=== PATIENT | male | born 1980 | race Caucasian/White ===

== ENCOUNTER 2017-03-02 17:56 | Emergency (ER) | payer SELFPAY ==
[~2017-03-02] VITALS: Wt 97.0 kg
[2017-03-02] MEDS ORDERED: ALBUTEROL 0.083% (NEB) 2.5 MG/3 ML AMP HHN STA (18:07)
[2017-03-02] MEDS ORDERED: IPRATROPIUM (NEB) 0.5 MG/2.5 ML AMP HHN ONE (18:30)
[2017-03-02] MEDS ORDERED: METHYLPREDNISOLONE 125 MG INJ IV ONE (18:30)
[2017-03-02] MEDS ORDERED: ALBU8.5H3 INH (19:28)
[2017-03-02] MEDS ORDERED: PRED20TA PO (19:28)
[2017-03-02] MEDS ORDERED: ALBU2.5V3 NEB (19:28)
--- NOTE | 2017-03-02 19:31 | ERD ---
ER Documentation Chief Complaint Chief Complaint COUGH, SOB, HX OF ASTHMA HPI This 36-year-old male complains of shortness of breath and wheezing for the last 2 days. Patient has a history of asthma. Patient has a history of hospitalizations. He was hospitalized 3 weeks ago around [facility]. Denies any recent URIs. He is uncertain of any allergies but he is new to [facility]. He has a nebulizer at home and is out of medication for this nebulizer and is out of his inhaler. ROS All systems reviewed and are negative except as per history of present illness. Medications Home Meds Active Scripts Albuterol Sulfate* (Albuterol Sulfate* Neb) 0.083%-3 Ml Neb, 2.5 MG NEB Q4 Y for SHORTNESS OF BREATH, #30 EA Prov:RUPERTO JARAMILLO MD 03/02/17 Albuterol Sulfate* (Proair HFA*) 8.5 Gm Hfa.aer.ad, 2 PUFF INH Q4, #1 INHALER Prov:RUPERTO JARAMILLO MD 03/02/17 Prednisone* (Prednisone*) 20 Mg Tab, 60 MG PO DAILY for 6 Days, TAB 60 mg by mouth for day for 3 days. Then 40 mg by mouth for 3 days Prov:RUPERTO JARAMILLO MD 03/02/17 PMhx/Soc History of Surgery: No Anesthesia Reaction: No Hx Neurological Disorder: No Hx Respiratory Disorders: No Hx Cardiac Disorders: No Hx Psychiatric Problems: No Hx Miscellaneous Medical Probl: No Hx Alcohol Use: No Hx Substance Use: No Hx Tobacco Use: No Smoking Status: Never smoker Physical Exam Vitals Vital Signs Date Time Temp Pulse Resp B/P Pulse Ox O2 Delivery O2 Flow Rate FiO2 03/02/17 18:23 Nasal Cannula 03/02/17 18:15 120 20 94 21 03/02/17 17:57 98.6 120 20 166/108 94 Physical Exam Const: [] Alert, distressed but visibly short of breath and wheezing. Head: Atraumatic Eyes: Normal Conjunctiva ENT: Normal External Ears, Nose and Mouth. Neck: Full range of motion..~ No meningismus. Resp: Fuhs wheezing without rales or retractions. Cardio: Regular rate and rhythm, no murmurs Abd: Soft, non tender, non distended. Normal bowel sounds Skin: No petechiae or rashes Back: No midline or flank tenderness Ext: No cyanosis, or edema Neur: Awake and alert Psych: Normal Mood and Affect Results 24 hrs Current Medications Medications (Trade) Dose Ordered Sig/Kristopher Route PRN Reason Start Time Stop Time Status Last Admin Dose Admin Albuterol (Proventil 0.083% (Neb)) 10 mg ONCE STAT HHN 03/02/17 18:07 03/02/17 18:09 DC 03/02/17 18:14 Ipratropium [place] (Atrovent 0.02% (Neb)) 1 mg ONCE ONCE HHN 03/02/17 18:30 03/02/17 18:31 DC 03/02/17 18:14 Methylprednisolone Sodium Succinate (Solu-Medrol) 125 mg ONCE ONCE IV 03/02/17 18:30 03/02/17 18:31 DC 03/02/17 18:20 Procedures/MDM She was given Solu-Medrol 125 mg IV. Patient was given continuous 10 mg albuterol and 1 mg Atrovent. Patient clear lungs on serial exam saturations. Patient feels much better as well. Patient presents with asthma exacerbation. There is no signs or symptoms to suggest respiratory distress, pneumonia, additional emergent cause of presenting complaints. We treated with a prednisone taper and refills of his albuterol for nebulizer and ProAir inhaler. He should return for new or worsening symptoms as directed after instructions on the primary care doctor this week. The patient was stable with no new complaints during the ER course. Clinically, there is no current evidence to suggest meningitis, sepsis, acute abdomen, pneumonia, acute coronary syndrome, pulmonary embolism, or any other emergent condition appearing to require further evaluation or hospitalization. The patient should certainly return for any new or worsening symptoms per the aftercare instructions. They should otherwise follow-up with her primary care doctor for reevaluation this week. Departure Diagnosis: Primary Impression: Asthma Asthma severity: unspecified severity Asthma persistence: unspecified Asthma complication type: unspecified Qualified Code: J45.909 - Asthma, unspecified asthma severity, unspecified whether complicated, unspecified whether persistent Condition: Stable Patient Instructions: Asthma, Acute (Adult) Additional Instructions: Recheck for new or worsening symptoms with primary care doctor. RUPERTO JARAMILLO MD Mar 02, 2017 19:31
== END 2017-03-02 19:38 | disposition home or self-care (01) ==
LOC: FTE 17:56
DX: J45.901 Unspecified asthma with (acute) exacerbation (principal)
CPT/HCPCS: 94644; 96374; 99284; J2930